=== PATIENT | female | born 1945 | race Two or more races ===

== ENCOUNTER 2016-07-26 03:32 | Emergency (ER) | payer MEDICAID ==
[~2016-07-26 03:32] MED LIST: ANTI-DIARRHEAL2 MG PO; BENTYL10 MG PO; BENTYL20 MG PO; CARAFATE1 G/10 ML PO; CYCLOBENZAPRINE10 MG PO; CYMBALTA30 MG PO; DIAZEPAM5 M2 PO; DOXYCYCLINE HY100 MG PO; ELAVIL25 MG PO; ERYTHROMYCIN3.5 GM OP; FLAGYL250 MG PO; FLEXERIL10 MG PO; GENTEAL SEVERE10 GM OP; GENTEAL25 ML OP; GENTEAL3.5 ML BOTH EYES; GUAIFEN-CODEIN120 ML PO; HYDROCODONE/APA1 CAP PO; IBUPROFEN200 MG PO; LEVAQUIN500 MG PO; MULTIVITAMIN1 TAB PO; NORCO 5/325 TAB1 TAB PO; NORCO 7.5/325 T1 TAB PO; NOSE SPRAY; OMEPRAZOLE20 MG PO; PHENERGAN25 MG PO; PRED FORTE5 ML OP; PROCTOFOAM15 GM RC; REGLAN10 M1 PO; REGLAN10 MG PO; RESTORIL15 MG PO; SEROQUEL100 MG PO; SEROQUEL200 MG PO; SIMVASTATIN20 MG PO; TRAMADOL HCL50 MG PO; VITAMIN C1000 MG PO; VITAMIN C500 M3 PO; VITAMIN C500 MG PO; ZOFRAN ODT4 MG/UDTAB PO; ZOFRAN4 MG PO; [UNRECOGNIZED DRUG - CODE] CH
[2016-07-26] MEDS ORDERED: RED YEAST RICE600 M2 PO (03:48)
[2016-07-26 04:15] LABS: BASO % 0.3 % (0-2); EOS % 1.6 % (0-7); EOSINOPHIL ABSOLUTE COUNT 0.1 tho/cmm (0.0-0.7); HCT-HEMATOCRIT 38.5 % (34.0-49.0); HGB-HEMOGLOBIN 12.6 gm/dl (12.0-15.5); IMMATURE GRANULOCYTES ABSOLUTE 0.02 tho/cmm (0-0.03); IMMATURE GRANULOCYTES PERCENT 0.3 % (0-0.3); LYMPH ABSOLUTE COUNT 2.8 tho/cmm (0.8-4.5); MCH (MEAN CORPUSCULAR HGB) 27.6 pg (28.0-32.0); MCHC MEAN CORPUSCULAR HGB CONC 32.7 % (32.0-36.0); MCV (MEAN CELL VOLUME) 84.2 fl (82.0-96.0); MEAN PLATELET VOLUME 10.1 cmc (9.4-12.4); MONO % 5.3 % (0-12); MONOCYTE ABSOLUTE COUNT 0.3 tho/cmm (0.0-1.2); NEUTROPHIL ABSOLUTE COUNT 2.9 tho/cmm (1.6-8.0); NEUTROPHIL-AUTOMATED 2.9 tho/cmm (1.6-8.0); NEUTROPHILS % 46.5 % (40-80); PLATELET COUNT 317 tho/cmm (150-450); RED BLOOD COUNT 4.57 mil/cmm (4.00-5.20); RED CELL DISTRIBUTION WIDTH 13.1 % (12.4-16.4); WHITE BLOOD COUNT 6.2 tho/cmm (4.0-10.0)
[2016-07-26 04:31] LABS: ALB/GLOB RATIO 1.2 (0.8-2.0); ALBUMIN 3.9 g/dl (3.5-5.0); ALKALINE PHOSPHATASE 63 U/L (33-138); ALT/SGPT 20 U/L (12-78); ANION GAP 12 mmol/L (0-20); AST/SGOT 18 U/L (10-40); BILIRUBIN,TOTAL 0.4 mg/dl (0-1.5); BLOOD UREA NITROGEN 7 mg/dl (6-24); CARBON DIOXIDE-VENOUS 27 mmol/L (22-32); CHLORIDE 102 mmol/l (96-110); CREATININE 0.79 mg/dl (0.50-1.10); GLUCOSE 176 mg/dL (70-110); POTASSIUM 3.6 mmol/L (3.7-5.1); SODIUM 137 mmol/L (135-145); eGFR VALUE FOR BLACK 87 mL/Min
[2016-07-26] MEDS ORDERED: ZOFRAN ODT4 MG PO (05:07)
[2016-07-26 06:45] LABS: URINE BILIRUBIN NEGATIVE (NEG); URINE BLOOD NEGATIVE (NEG); URINE GLUCOSE (UA) NEGATIVE (NEG); URINE KETONE NEGATIVE (NEG); URINE LEUKOCYTE ESTERASE POSITIVE (NEG); URINE NITRITE NEGATIVE (NEG); URINE PROTEIN NEGATIVE (NEG)
[2016-07-26 06:47] LABS: URINE APPEARANCE CLEAR; URINE COLOR STRAW
[2016-07-26 07:06] LABS: URINE RBC 0-1 /[HPF] (0-5)
== END 2016-07-26 06:30 ==
LOC: EDMED 03:32
PROVIDERS: Emergency Medicine Emergency Medical Services
DX: K52.9 Noninfective gastroenteritis and colitis, unspecified (principal); K21.9 Gastro-esophageal reflux disease without esophagitis; E78.5 Hyperlipidemia, unspecified; Z79.899 Other long term (current) drug therapy; Z98.890 Other specified postprocedural states
CPT/HCPCS: J1885; J2405; J7030

== ENCOUNTER 2016-09-11 02:12 | Emergency (ER) | payer MEDICAID ==
[~2016-09-11 02:12] MED LIST changes: +RED YEAST RICE600 M2 PO; +ZOFRAN ODT4 MG PO
[2016-09-11] MEDS ORDERED: ATIVAN1 M2 PO (02:34)
[2016-09-11] MEDS ORDERED: [UNRECOGNIZED DRUG - OTHER] PO (02:35)
[2016-09-11 03:20] LABS: BASO % 0.4 % (0-2); EOS % 1.7 % (0-7); EOSINOPHIL ABSOLUTE COUNT 0.1 tho/cmm (0.0-0.7); HCT-HEMATOCRIT 36.1 % (34.0-49.0); HGB-HEMOGLOBIN 11.8 gm/dl (12.0-15.5); LYMPH ABSOLUTE COUNT 1.9 tho/cmm (0.8-4.5); MCH (MEAN CORPUSCULAR HGB) 27.3 pg (28.0-32.0); MCHC MEAN CORPUSCULAR HGB CONC 32.7 % (32.0-36.0); MCV (MEAN CELL VOLUME) 83.6 fl (82.0-96.0); MEAN PLATELET VOLUME 10.2 cmc (9.4-12.4); MONO % 6.9 % (0-12); MONOCYTE ABSOLUTE COUNT 0.4 tho/cmm (0.0-1.2); NEUTROPHIL ABSOLUTE COUNT 2.9 tho/cmm (1.6-8.0); NEUTROPHIL-AUTOMATED 2.9 tho/cmm (1.6-8.0); PLATELET COUNT 270 tho/cmm (150-450); RED BLOOD COUNT 4.32 mil/cmm (4.00-5.20); RED CELL DISTRIBUTION WIDTH 12.8 % (12.4-16.4); WHITE BLOOD COUNT 5.3 tho/cmm (4.0-10.0)
[2016-09-11 03:30] LABS: ALBUMIN 3.4 g/dl (3.5-5.0); ALKALINE PHOSPHATASE 56 U/L (33-138); ALT/SGPT 18 U/L (12-78); ANION GAP 11 mmol/L (0-20); AST/SGOT 11 U/L (10-40); BILIRUBIN,TOTAL 0.3 mg/dl (0-1.5); BLOOD UREA NITROGEN 12 mg/dl (6-24); CALCIUM 8.5 mg/dl (8.5-10.5); CARBON DIOXIDE-VENOUS 26 mmol/L (22-32); CHLORIDE 104 mmol/l (96-110); CREATININE 0.74 mg/dl (0.50-1.10); GLUCOSE 118 mg/dL (70-110); LIPASE 109 U/L (73-393); POTASSIUM 4.2 mmol/L (3.7-5.1); SODIUM 137 mmol/L (135-145); eGFR VALUE FOR BLACK >90 mL/Min
[2016-09-11 03:37] LABS: URINE BILIRUBIN NEGATIVE (NEG); URINE BLOOD NEGATIVE (NEG); URINE COLOR YELLOW; URINE GLUCOSE (UA) NEGATIVE (NEG); URINE KETONE NEGATIVE (NEG); URINE LEUKOCYTE ESTERASE POSITIVE (NEG); URINE NITRITE NEGATIVE (NEG); URINE PROTEIN NEGATIVE (NEG)
[2016-09-11 03:38] LABS: URINE APPEARANCE HAZY
[2016-09-11 03:44] LABS: URINE EPITHELIAL CELLS RARE /[HPF] (0-10); URINE RBC 0 /[HPF] (0-5); URINE WBC RARE /[HPF] (0-5)
[2016-09-11 03:45] LABS: URINE BACTERIA 1+
[2016-09-11] MEDS ORDERED: PEPCID20 M1 PO (07:29)
[2016-09-11] MEDS ORDERED: ZOFRAN ODT4 MG PO (18:46)
== END 2016-09-11 07:49 ==
LOC: EDMED 02:12
PROVIDERS: Nurse Practitioner Family
DX: R10.32 Left lower quadrant pain (principal); R10.12 Left upper quadrant pain; R11.0 Nausea; E78.5 Hyperlipidemia, unspecified; Z98.890 Other specified postprocedural states; Z90.89 Acquired absence of other organs; Z88.0 Allergy status to penicillin
CPT/HCPCS: C9113; J1885; J2405; J7030; Q9967

== ENCOUNTER 2016-09-11 15:57 | Emergency (ER) | payer MEDICAID ==
[~2016-09-11 15:57] MED LIST changes: +ATIVAN1 M2 PO; +PEPCID20 M1 PO; +[UNRECOGNIZED DRUG - OTHER] PO
[2016-09-11] MEDS ORDERED: ZOFRAN ODT4 MG PO (18:46)
== END 2016-09-11 18:56 ==
LOC: EDMED 15:57
DX: R11.2 Nausea with vomiting, unspecified (principal); R10.84 Generalized abdominal pain; R19.7 Diarrhea, unspecified
CPT/HCPCS: J2405; J7030

== ENCOUNTER 2016-12-17 12:12 | Emergency (ER) | payer MEDICAID ==
[~2016-12-17] VITALS: Ht 157.5 cm; Wt 54.0 kg
[2016-12-17 14:08] LABS: URINE APPEARANCE CLEAR; URINE BILIRUBIN NEGATIVE (NEG); URINE BLOOD SMALL (NEG); URINE COLOR YELLOW; URINE GLUCOSE (UA) NEGATIVE (NEG); URINE KETONE NEGATIVE (NEG); URINE LEUKOCYTE ESTERASE NEGATIVE (NEG); URINE NITRITE NEGATIVE (NEG); URINE PROTEIN NEGATIVE (NEG)
[2016-12-17 14:13] LABS: URINE AMORPHOUS 1+; URINE EPITHELIAL CELLS 0-1 /[HPF] (0-10); URINE RBC 0 /[HPF] (0-5); URINE WBC 0 /[HPF] (0-5)
[2016-12-17] MEDS ORDERED: FLONASE ALLERG9.9 ML (15:40)
[2016-12-17] MEDS ORDERED: ATIVAN1 M2 PO (15:41)
[2016-12-17] MEDS ORDERED: LIDOCAINE HCL100 ML PO (15:41)
[2016-12-17] MEDS ORDERED: NEURONTIN100 M1 PO (15:42)
[2016-12-17] MEDS ORDERED: ARTIFICIAL TEAR1510 OP (15:43)
[2016-12-17] MEDS ORDERED: TETRACYCLINE H500 M1 PO (15:44)
[2016-12-17] MEDS ORDERED: SOOTHE262 MG PO (15:46)
[2016-12-17] MEDS ORDERED: OMEPRAZOLE40 M2 PO ×2 (15:49→17:21)
[2016-12-17 16:03] LABS: BASO % 0.3 % (0-2); EOS % 0.9 % (0-7); EOSINOPHIL ABSOLUTE COUNT 0.1 tho/cmm (0.0-0.7); HCT-HEMATOCRIT 40.1 % (34.0-49.0); HGB-HEMOGLOBIN 13.4 gm/dl (12.0-15.5); IMMATURE GRANULOCYTES ABSOLUTE 0.01 tho/cmm (0-0.03); IMMATURE GRANULOCYTES PERCENT 0.2 % (0-0.3); LYMPH % 21.1 % (20-45); LYMPH ABSOLUTE COUNT 1.2 tho/cmm (0.8-4.5); MCH (MEAN CORPUSCULAR HGB) 27.9 pg (28.0-32.0); MCHC MEAN CORPUSCULAR HGB CONC 33.4 % (32.0-36.0); MCV (MEAN CELL VOLUME) 83.4 fl (82.0-96.0); MEAN PLATELET VOLUME 10.5 cmc (9.4-12.4); MONO % 5.2 % (0-12); MONOCYTE ABSOLUTE COUNT 0.3 tho/cmm (0.0-1.2); NEUTROPHIL ABSOLUTE COUNT 4.2 tho/cmm (1.6-8.0); NEUTROPHIL-AUTOMATED 4.2 tho/cmm (1.6-8.0); NEUTROPHILS % 72.3 % (40-80); PLATELET COUNT 291 tho/cmm (150-450); RED BLOOD COUNT 4.81 mil/cmm (4.00-5.20); RED CELL DISTRIBUTION WIDTH 12.7 % (12.4-16.4); WHITE BLOOD COUNT 5.8 tho/cmm (4.0-10.0)
[2016-12-17] MEDS ORDERED: OSTEO BI FLEX PO (16:04)
[2016-12-17 16:17] LABS: ALB/GLOB RATIO 1.1 (0.8-2.0); ALBUMIN 3.8 g/dl (3.5-5.0); ALT/SGPT 24 U/L (12-78); BILIRUBIN,TOTAL 0.3 mg/dl (0-1.5); BLOOD UREA NITROGEN 9 mg/dl (6-24); CALCIUM 8.7 mg/dl (8.5-10.5); CARBON DIOXIDE-VENOUS 27 mmol/L (22-32); CHLORIDE 106 mmol/l (96-110); CREATININE 0.72 mg/dl (0.50-1.10); GLUCOSE 110 mg/dL (70-110); LIPASE 97 U/L (73-393); SODIUM 137 mmol/L (135-145); eGFR VALUE FOR BLACK >90 mL/Min
[2016-12-17 16:22] LABS: ALKALINE PHOSPHATASE 64 U/L (33-138); ANION GAP 9 mmol/L (0-20); AST/SGOT 27 U/L (10-40); POTASSIUM 4.5 mmol/L (3.7-5.1)
== END 2016-12-17 17:29 ==
LOC: EDMED 12:12
PROVIDERS: Emergency Medicine
DX: R10.84 Generalized abdominal pain (principal); R07.9 Chest pain, unspecified; R11.0 Nausea; R19.7 Diarrhea, unspecified; F41.9 Anxiety disorder, unspecified; Z79.899 Other long term (current) drug therapy; Z90.89 Acquired absence of other organs; Z98.890 Other specified postprocedural states
CPT/HCPCS: J2060; J7030